=== PATIENT | female | born 1990 | race Caucasian/White ===

== ENCOUNTER 2016-09-19 09:11 | Outpatient (CLI) | payer BC ==
[~2016-09-19] VITALS: Ht 165.1 cm; Wt 72.6 kg
[2016-09-19] VITALS (15 sets, daily range): BP systolic 92–141; BP diastolic 50–84
[2016-09-19 10:08] LABS: EOSINOPHIL (%) 1.9 % (0-5); EOSINOPHIL COUNT 0.1 K/uL (0-0.3); HEMATOCRIT 37.8 % (36.0-46.0); MCH 29.4 PG (29.0-34.0); MCHC 33.9 G/DL (30.0-36.0); MCV 86.9 FL (83-99); MONOCYTE (%) 6.3 % (3-12); MONOCYTE COUNT 0.3 K/uL (0-0.8); NEUTROPHIL (%) 71.8 % (45-76); NEUTROPHIL COUNT 3.7 K/uL (1.8-6.4); PLATELET COUNT 235 K/uL (156-360); RBC DIS.WIDTH-CV 12.6 % (11.8-14.6); RED BLOOD COUNT 4.35 M/uL (3.80-5.20); WHITE BLOOD COUNT 5.2 K/uL (4.1-10.2)
[2016-09-19 10:17] LABS: FIBRINOGEN 301 MG/DL (160-450); INTER. NORMALIZED RATIO 1.1; PROTHROMBIN TIME 10.8 (9.2-11.2); PTT 28.9 (25-32)
[2016-09-19 12:29] LABS: AMPHETAMINES QUANT VALUE 0 NG/ML; BARBITUATES QUANT VALUE 0 NG/ML; BENZODIAZEPINES QUANT VALUE 0 NG/ML; BENZODIAZEPINES, URINE SCREEN Negative (200 ng/mL); MARIJUANA QUANT VALUE 0 NG/ML; OPIATES QUANTITATIVE VALUE 0 NG/ML; PHENCYCLIDINE QUANT VALUE 0 NG/ML
[2016-09-20] VITALS (22 sets, daily range): BP systolic 91–131; BP diastolic 50–87
[2016-09-20 14:41] LABS: HSV 1 IgM Screen Negative (Negative); HSV 2 IgM Screen Negative (Negative); RUBELLA VIRUS IgM (ACUTE) ABY+ <0.90 (<0.90)
[2016-09-20 16:29] LABS: TOXOPLASMA IgM (ACUTE ONLY)+ Negative (Negative)
[2016-09-21] VITALS (10 sets, daily range): BP systolic 92–128; BP diastolic 54–82
[2016-09-21] MEDS ORDERED: DOXYCYCLINE HY100 MG PO ×2 (10:41→11:12)
[2016-09-21] MEDS ORDERED: IBUPROFEN800 MG PO ×2 (10:41→11:12)
[2016-09-21 16:55] LABS: Cytomegalovirus IgM Antibody+ <0.2 (())
== END 2016-09-21 14:00 | disposition home or self-care (01) ==
LOC: LDRP-OP 09:11 → 2WEST 09:12
PROVIDERS: Midwife; Nurse Practitioner
DX: O02.1 Missed abortion (principal); Z3A.14 14 weeks gestation of pregnancy
CPT/HCPCS: 80306 90; 85025; 85384; 85610; 85730; 86645 90; 86747 90; 86762 90; 86778 90; 88305; G0378; J1100; J1885; J2210; J2250; J2405; J3010; J7120